=== PATIENT | female | born 1975 | race Hispanic/Latino ===

== ENCOUNTER 2017-12-06 06:36 | Day surgery (SDC) | payer BC ==
[2017-11-28 10:06] VITALS: BMI 24.3
[2017-12-06] MEDS ORDERED: Bupivacaine 0.5% Inj(30mL) ONE (07:07)
[2017-12-06 07:21] VITALS: RESP 18
[2017-12-06 07:44] LABS: HEMOGLOBIN 12.4 g/dL (12.0-16.0); MEAN CELL VOLUME 94.2 fl (81.0-99.0); MEAN CORPUSCULAR HEMOGLOBIN 30.9 pg (27.0-31.0); MEAN CORPUSCULAR HGB CONC 32.8 g/dL (33.0-37.0); RBC 4.02 Mil/uL (3.80-5.20); RED CELL DISTRIBUTION WIDTH 13.8 % (11.5-14.5); WHITE BLOOD COUNT 3.4 K/uL (4.8-10.8)
[2017-12-06] MEDS ORDERED: Rocuronium 10 mg/ml (5 ml) ONE (07:47)
[2017-12-06] MEDS ORDERED: Propofol 10 mg/ml Inj (20 ML) ONE (07:47)
[2017-12-06] MEDS ORDERED: ePHEDrine 50 mg/ml Inj ONE (07:47)
[2017-12-06] MEDS ORDERED: Midazolam 2 MG/2 ML VIAL ONE (07:47)
[2017-12-06] MEDS ORDERED: Lidocaine 4% (Laryng-O-Jet) Kit MM ONE (07:48)
[2017-12-06] MEDS ORDERED: Succinylcholine 200 mg/10 ml Inj IV ONE (07:48)
[2017-12-06] MEDS ORDERED: Lactated Ringer's 1,000 ML IV ONE ×2 (07:55→10:30)
[2017-12-06] MEDS ORDERED: Silver Nitrate Topical - Stick ONE ×2 (09:38→10:39)
[2017-12-06] MEDS ORDERED: Dexamethasone 4 mg/1 ml ONE (09:42)
[2017-12-06] MEDS ORDERED: Neostigmine 1:1000 (1 mg/ml) Inj ONE (10:34)
[2017-12-06] MEDS ORDERED: Desflurane Inhalation Anesthetic Liq (240 ml) ONE (10:42)
[2017-12-06] MEDS ORDERED: Bupivacaine 0.5% 50 ML IJ ONE (10:50)
[2017-12-06] MEDS ORDERED: DiphenhydrAMINE 50 mg/ml Inj IVP PRN (10:59)
[2017-12-06] MEDS ORDERED: Lactated Ringer's 1,000 ML IV SCH (11:00)
[2017-12-06] MEDS ORDERED: Oxycodone/Acetaminophen 5/325 mg Tab PO PRN (11:08)
[2017-12-06 13:37] VITALS: O2SAT 100
[2017-12-06 17:11] VITALS: BP 124/84; PULSE 79; TEMP 97.8
--- NOTE | 2017-12-21 14:09 | OP ---
PROCEDURE DATE: 12/06/2017 PREOPERATIVE DIAGNOSES: Dyspareunia, rule out pelvic endometriosis. POSTOPERATIVE DIAGNOSES: Dyspareunia, rule out pelvic endometriosis. PROCEDURE PERFORMED: Cystoscopy with bilateral ureteral catheterization, injection of dye, robotic da Rere laparoscopy, excision of endometriosis, bilateral ureterolysis, and diagnostic hysteroscopy. SURGEON: August Ackerman MD SQUAD BOSS: Hugo Stuart MD ESTIMATED BLOOD LOSS: Minimal. COMPLICATIONS: None. INDICATION FOR THE PROCEDURE: The patient is a 42-year-old female with a history of dyspareunia. The patient had oophorectomy, so she did not have regular periods. Nevertheless, her clinical symptomatology was suggestive of the possibility of endometriosis with point tenderness. On examination, she was counseled with the risks and benefits of the procedure and she was taken to the OR. DESCRIPTION OF PROCEDURE: After adequate anesthesia was obtained, the patient was placed in a dorsal lithotomy position. She was prepped and draped, the surgeon gotten a glove. At this time, after making sure the patient was padded properly and that her hips were always in the normal anatomical position and not over extended or over flexed throughout the procedure, a time-out was taken according to the hospital policy and the procedure was started. Attention was in the vaginal area where a cystoscope was inserted into the urethra. 5 mL of IC-Green were injected in each ureter after catheterizing the left ureter, utilizing all the way to distal ureter, utilizing a 5-Cambodian open ended catheter and then catheterizing the right ureter all the way to the distal ureter with a 5-Cambodian open ended catheter. The cystoscope was removed and it was replaced by 16-Cambodian Curiel. A speculum was placed in the vagina. The anterior lip of the cervix was grasped and the cervix was gently dilated. Hysteroscope was performed revealing presence of normal cavity. Attention was then on the abdominal area where an open laparoscopy was performed without any complications. The abdomen was entered in the blunt fashion. The cannula was inserted and the abdomen insufflated. Two additional ports were inserted under direct visualization. The [employer] robot Xi was then docked and the procedure was started. Inflammatory changes were observed in the pelvis, so peritoneotomy was performed starting at the left pelvic side wall, opening up the left pelvic sidewall and dissecting it all, dissecting the ureter and excising the area of peritoneum, extending from the utero-ovarian ligament all the way down to the left uterosacral ligament and lateralizing the ureter. the biopsied peritoneum was then sent out. The posterior cervical aspect was also dissected off opening up the pouch of Jose Antonio and excising an area of endometriosis. Two additional samples were obtained from the left cul-de-sac and the right cul-de-sac. Attention was then in the right pelvic sidewall where after entering peritoneum, the peritoneal was dissected medially and ureter lateralized dissecting off the large area of peritoneum all the way down to the right uterosacral area. At this point, we checked for hemostasis and appeared to be excellent. The helium beam device was used to ablate the inflammatory areas in the posterior aspect of the uterus. At this point, we checked for hemostasis and appeared to be excellent. The da Rere robot was undocked. The instruments were removed and the abdomen was desufflated. The incisions were closed with 0 PDS for the fascia and 4-0 Monocryl for the skin. At the end of the procedure, all tapes and instrument counts were correct. The patient tolerated the procedure well. She was taken to the recovery room in excellent condition. August Ackerman MD MTDD
== END 2017-12-06 16:45 | disposition home or self-care (01) ==
LOC: H.OPSURG 06:36
PROVIDERS: ATTEND Obstetrics & Gynecology Reproductive Endocrinology
DX: N80.3 Endometriosis of pelvic peritoneum (principal); N94.10 Unspecified dyspareunia
CPT/HCPCS: 36415; 58555; 58662; 85027; 86850; 86900; 88305; C1729; J0330; J0690; J1100; J2001; J2250; J2405; J2704; J2710; J2765; J3010; J7030; J7040; J7120